=== PATIENT | male | born 1955 | race Caucasian/White ===

== ENCOUNTER → 2020-12-11 | Outpatient (CLI) | payer MEDICARE, OTHER | LOC: KOH-I 09:51 | DX: S92.402A Displaced unspecified fracture of left great toe, initial encounter for closed fracture (principal); M19.072 Primary osteoarthritis, left ankle and foot | CPT/HCPCS: 73630 ==

== ENCOUNTER → 2020-12-31 | Outpatient (CLI) | payer MEDICARE, OTHER | LOC: NM 06:25 | DX: I96 Gangrene, not elsewhere classified (principal); L97.529 Non-pressure chronic ulcer of other part of left foot with unspecified severity; S80.922A Unspecified superficial injury of left lower leg, initial encounter | CPT/HCPCS: 78800; 93926; A9569 ==

== ENCOUNTER 2021-01-30 14:33 | Emergency (ER) | payer MEDICARE, OTHER ==
[~2021-01-30] VITALS: Ht 180.3 cm; Wt 106.1 kg
[2021-01-30 16:04] LABS: HEMOGLOBIN 15.6 gm/dl (14.0-17.5); RED BLOOD COUNT 5.34 M/UL (4.20-5.50); WHITE BLOOD COUNT 15.3 K/UL (4.5-11.0)
[2021-01-30 16:11] LABS: BUN/CREATININE RATIO 19 (0-10)
[2021-01-31 11:41] LABS: ACINETOBACTER BAUMANNII Not Detected (Negative); CANDIDA ALBICANS Not Detected (Negative); CANDIDA KRUSEI Not Detected (Negative); CANDIDA TROPICALIS Not Detected (Negative); ESCHERICHIA COLI Not Detected (Negative); HAEMOPHILUS INFLUENZAE Not Detected (Negative); KLEBSIELLA OXYTOCA Not Detected (Negative); KLEBSIELLA PNEUMONIAE Not Detected (Negative); KPC-CARBAPENEM-RESISTANCE GENE Not Detected (Negative); PROTEUS Not Detected (Negative); PSEUDOMONAS AERUGINOSA Not Detected (Negative); SERRATIA MARCESANS Not Detected (Negative); STAPHYLOCOCCUS Not Detected (Negative); STAPHYLOCOCCUS AUREUS Not Detected (Negative); STREP AGALACTIAE (GROUP B) Not Detected (Negative); STREP PYOGENES (GROUP A) Not Detected (Negative); STREPTOCOCCUS Not Detected (Negative); mecA (METHICILLIN RESIST GENE Not Detected (Negative); vanA/B (VANCOMYCIN RESIST GENE Not Detected (Negative)
[2021-01-31 11:43] LABS: ENTEROCOCCUS DETECTED (Negative)
== END 2021-01-31 12:50 | disposition short-term general hospital (02) ==
LOC: ER1 14:33
PROVIDERS: Emergency Medicine
DX: E11.51 Type 2 diabetes mellitus with diabetic peripheral angiopathy without gangrene (principal); L03.115 Cellulitis of right lower limb; I99.8 Other disorder of circulatory system; D72.829 Elevated white blood cell count, unspecified; I10 Essential (primary) hypertension; F17.200 Nicotine dependence, unspecified, uncomplicated
CPT/HCPCS: 80053; 82550; 82553; 83605; 83874; 84484; 85025; 85610; 85652; 85730; 86140; 87040; 87077; 87150; 87186; 93005; 93925; 96365; 96366; 96375; 96376; 99285; J0692; J2270; J2405; J2543; J3370; J7070